=== PATIENT | male | born 1980 | race Two or more races ===

== ENCOUNTER 2021-04-19 23:33 | Emergency (ER) | payer BC, OTHER ==
[~2021-04-19] VITALS: Ht 175.3 cm; Wt 86.2 kg
[2021-04-20] VITALS: BP 127/89
== END 2021-04-20 00:25 | disposition home or self-care (01) ==
LOC: ER 23:36
DX: Z00.8 Encounter for other general examination (principal); R07.0 Pain in throat; I10 Essential (primary) hypertension; E78.5 Hyperlipidemia, unspecified; Z88.8 Allergy status to other drugs, medicaments and biological substances